=== PATIENT | male | born 1980 | race Caucasian/White ===

== ENCOUNTER 2018-07-02 15:51 | Outpatient (CLI) | payer BC ==
--- NOTE | 2018-07-02 16:05 | RAD ---
XR Chest Pa Lat STANDARD HISTORY: Positive PPD test COMPARISON: None FINDINGS: The heart size is normal. The lungs are well expanded without focal areas of consolidation, pneumothorax or pleural effusions. IMPRESSION: No evidence of active pulmonary tuberculosis.
== END 2018-07-02 15:52 | disposition home or self-care (01) ==
LOC: NAV RAD 15:51
PROVIDERS: ATTEND Nurse Practitioner Adult Health
DX: Z11.1 Encounter for screening for respiratory tuberculosis (principal)
CPT/HCPCS: 71046